=== PATIENT | female | born 1970 | race Caucasian/White ===

== ENCOUNTER → 2019-04-22 | Outpatient (REF) | payer OTHER ==
[2019-04-22 16:09] LABS: C REACTIVE PROTEIN QUANTITATIV < 0.30 MG/DL (0.00-0.30); FREE T3 3.7 PG/ML (2.2-4.0); FREE T4 0.95 NG/DL (0.76-1.46)
[2019-04-22 16:12] LABS: PROGESTERONE 0.73 NG/ML; THYROID PEROXIDASE ANTIBODY 164.6 U/ML (<60.0)
[2019-04-22 16:13] LABS: THYROGLOBULIN ANTIBODY 23.6 U/ML (<60.0)
[2019-04-27 00:07] LABS: ESTROGENS TOTAL 90 pg/mL (.); TESTOSTERONE FREE (DIRECT) 1.2 pg/mL (0.0-4.2)
== END ==
LOC: M LABDRAW1 12:57
PROVIDERS: ATTEND Nurse Practitioner Pediatrics
DX: E28.0 Estrogen excess (principal); E03.9 Hypothyroidism, unspecified